=== PATIENT | male | born 1955 | race Caucasian/White ===

== ENCOUNTER 2017-03-26 07:47 | Day surgery (SDC) | payer OTHER ==
[~2017-03-26] VITALS: Ht 167.6 cm; Wt 98.0 kg
[2017-03-26 09:29] VITALS: Ht 167.6 cm; Wt 98.0 kg
[2017-03-26] MEDS ORDERED: TRIA15CR55 TOP (09:43)
[2017-03-26] MEDS ORDERED: DARU1TAB PO (09:43)
[2017-03-26] MEDS ORDERED: EMTR1TAB16 PO (09:43)
[2017-03-26] MEDS ORDERED: SULF20OR7 PO (09:43)
--- NOTE | 2017-03-26 10:32 | GILP ---
DATE OF PROCEDURE: PREOPERATIVE DIAGNOSIS: Screening colonoscopy to rule out colon polyps. 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 These two arteriovenous malformations were cauterized by using the bipolar cauterization probe. Minimal external hemorrhoids. DESCRIPTION OF PROCEDURE: After informed written consent was obtained, the patient was asked to lie on the left lateral side, 4 mg Versed and 50 mcg of fentanyl was given as intravenous anesthesia. When the patient became somnolent, the Olympus video colonoscope was introduced into the rectum and scope was advanced all the way to the cecum. No polyps, diverticulosis or any other abnormality det ected up to the cecum. On the way out, further careful evaluation was carried out. Retroflexion wa s performed. Minimal internal and then when the scope was withdrawn, minimal external hemorrhoids w ere noted. Two bright red patches were noted in the rectum measuring about 4 mm in diameter, 2 of t hem and both of them appeared to be in the rectum, they were bright red patches, velvety in appearan ce, consistent with arteriovenous malformations. Both of these lesions were cauterized by using the gold probe until it turned to be white. Minimal external hemorrhoids were noted and the procedure was terminated. PLAN: Recommend repeat colonoscopy in 10 years. Dictated By: CARLOS GONZÁLES/VINNY Conf#: [id number] DID#: [id number]
[2017-03-26] MEDS ORDERED: MIDAZOLAM 1 MG/ML 2 ML INJ ONE ×2 (10:33)
[2017-03-26] MEDS ORDERED: FENTAnyl 50 MCG/ML VIAL ONE (10:33)
[2017-03-26 10:40] VITALS: BP 103/64; RESP 14
--- NOTE | 2017-03-26 11:34 | OPPN ---
Date/Time of Note Date/Time of Note DATE: 03/26/17 TIME: 11:32 Proc Note GI Procedure Date 03/26/17 Indication: screening/surveillance Pre-procedure Diagnosis screening colonoscopy Post-procedure Diagnosis avm rectum bicap done Procedure Performed: Colonoscopy Surgeon see signature line Street Light Repairer none Anesthesia Type: moderate sedation Tourniquet Time none EBL none Transfusion required none Biopsy 1: none Grafts/Implants none Tubes/Drains none Complication(s) none Disposition: other Procedure Description colonoscopy done under mod sed 2 recatl avms noted bicap done mini hemorrhoids CARLOS NEGRETE MD Mar 26, 2017 11:34
== END 2017-03-26 11:36 | disposition home or self-care (01) ==
LOC: GIL 07:47
PROVIDERS: ATTEND Internal Medicine Gastroenterology
DX: Z12.11 Encounter for screening for malignant neoplasm of colon (principal); K64.4 Residual hemorrhoidal skin tags
CPT/HCPCS: 45378; J2250; J3010